=== PATIENT | male | born 1945 | race Caucasian/White ===

== ENCOUNTER 2016-08-10 15:51 | Observation (INO) | payer BC ==
[2016-08-10] MEDS ORDERED: KETOROLAC TROMETHAMINE 30 MG/ML VIAL ONE (16:20)
[2016-08-10] MEDS ORDERED: ONDANSETRON HCL 4 MG/2 ML VIAL ONE (16:21)
[2016-08-10 16:25] LABS: BASOPHIL# 0.1 X 10^3uL (0.0-0.1); BASOPHILS 0.5 % (0.0-2.0); EOSINOPHILS 0.8 % (0.0-6.0); EOSINOPHILS# 0.1 X 10^3uL (0.0-0.4); HEMATOCRIT 45.8 % (42.0-54.0); HEMOGLOBIN 16.1 g/dL (14.0-18.0); LYMPHOCYTES# 1.9 X 10^3uL (0.8-3.8); MEAN CELL VOLUME 89.6 fL (80.0-100.0); MEAN CORPUS. HGB CONCENTRATION 35.2 g/dL (32.0-36.0); MEAN CORPUSCULAR HEMOGLOBIN 31.6 pg (29.0-35.0); MEAN PLATELET VOLUME 7.5 fL (7.4-10.4); MONOCYTES# 0.7 X 10^3uL (0.2-1.0); NEUTROPHILS 76.7 % (54.0-75.0); NEUTROPHILS# 8.9 X 10^3uL (2.6-6.7); PLATELET COUNT 370 X 10^3uL (130-440); RED CELL DISTRIBUTION WIDTH 12.4 % (11.5-14.5); WHITE BLOOD COUNT 11.7 X 10^3uL (3.9-10.7)
[2016-08-10 16:28] LABS: BLOOD UREA NITROGEN 25 mg/dL (9-20); CALCIUM 9.6 mg/dL (8.4-10.2); CHLORIDE 104 mmol/L (98-107); EST GLOMERULAR FILTRATION RATE > 60 mL/min; GLUCOSE 125 mg/dL (70-100); POTASSIUM 3.9 mmol/L (3.5-5.1); SODIUM 140 mmol/L (137-145)
--- NOTE | 2016-08-10 16:47 | CT REPORT ---
HISTORY: Left-sided flank pain COMPARISON: None. TECHNIQUE: This examination was performed using automated exposure control, adjustment of mA or kV according to patient size, and/or use of iterative reconstruction technique. Axial contiguous images of the abdome n and pelvis were obtained without oral or IV contrast, coronal reformat images also performed. FINDINGS: Lung bases and cardiac apex appearing normal. There are left hepatic lobe cysts. Liver pare nchyma otherwise normal on noncontrast examination. The gallbladder is normal. The adrenal glands giovanni ear normal. Right kidney appears normal without hydronephrosis, mass or stone. The left kidney demons trates [id number] hydronephrosis with perinephric edema on the basis of a proximal left uretera l calculus best seen on series 2 image 66 and series 3 image 48 measuring over a craniocaudal dimensi on of 5 mm. No additional ureteral calculus seen. Pancreatic parenchyma appears normal. Spleen appears normal. Aorta is atherosclerotic without aneurysm. Stomach, small and large bowel appear normal. The appendix is normal. No free fluid seen. Prostate gl and is prominent. Small bilateral inguinal hernias are seen, containing fat on the left and containin g fat and a small portion of small bowel in the right. Pelvic phleboliths are noted. The urinary blad sebastian is normal. There are degenerative changes of moderately severe appearance throughout the spine without acute or aggressive bone lesion. IMPRESSION: 1. Mild to moderate left-sided hydronephrosis on the basis of a 5 mm calculus in the proximal left ur eter. 2. Bilateral inguinal hernias containing fat and a small knuckle of bowel on the right without obstru ction seen. 3. Enlarged prostate gland. 4. Otherwise incidental findings as discussed in complete detail above. Final Electronic Signature: This report was electronically signed by Ilya Barber MD on 08/10/2016 4:45 PM. lindsay /
[2016-08-10] MEDS ORDERED: ACETAMINOPHEN 325 MG TABLET PO PRN (16:56)
[2016-08-10] MEDS ORDERED: HOME MEDICATION LIST NEEDED 1 EA EACH MC ONE (16:56)
[2016-08-10] MEDS ORDERED: MAG-AL PLUS XS SUSP 30 ML UDC PO PRN (16:56)
[2016-08-10] MEDS ORDERED: ONDANSETRON HCL 4 MG/2 ML VIAL IV PRN (16:59)
--- NOTE | 2016-08-10 17:14 | ER NURSING DOCUMENTATION ---
Nurse's Notes [facility] Name:Satinder De Santiago Age:70 yrs Sex:Male :1945 Arrival Date:08/10/2016 Time:15:51 Bed1 Private MD: Diagnosis:Kidney Stone w/ Colic-: Left 5mm Proximal Ureteral Stone;Hydronephrosis Presentation: 08/10 15:54 Acuity: TREE 3 rh 15:56 Presenting complaint: Patient states: pt has had left flank pain and nausea getting st worst since [place]. Transition of care: Home. 15:56 Method Of Arrival: Private Vehicle st Triage Assessment: 15:58 General: Appears uncomfortable, Behavior is cooperative. Pain: Complains of pain in st posterior aspect of left lateral abdomen Pain currently is 7 out of 10 on a pain scale. Pain began 30 min ago got bad. Neuro: No deficits noted. Cardiovascular: No deficits noted. Respiratory: No deficits noted. GI: Abdomen is flat, non- distended Abd is soft and non tender X 4 quads. Reports nausea. 15:59 Musculoskeletal: Reports pain in posterior aspect of left lateral abdomen. st Historical: - Allergies: neosporn; - Home Meds: 1. Enalapril Oral 2. amlodipine oral 3. Metformin Oral 4. atorvastatin oral 5. Enalapril Oral 6. cetirizine oral 7. amlodipine oral 8. Aspirin Oral 9. tamsulosin oral - PMHx: HYPERTENSION; DIABETES - NIDDM; bradycardia; stroke; Hypertension; - Tetanus: < 10 years. - Ebola Screening: : Patient denies exposure to infectious person. Patient denies travel to an Ebola-affected area in the 21 days before illness onset. . - Social history: Smoking status: Patient states was never smoker of tobacco. Patient/guardian denies using alcohol, marijuana. Screenin:59 Infectious Disease Risk None. Abuse screen: Denies threats or abuse. Denies injuries st from another. pt feels safe at home. Nutritional screening: No deficits noted. Vital Signs: 15:54 BP 139 / 119; Pulse 48; Resp 15; Temp 97.7(O); Pulse Ox 95% on R/A; Weight 81.65 kg; rh Height 6 ft. 0 in. (182.88 cm); Pain 7/10; 16:42 BP 150 / 60 (auto/); Pain 2/10; st 16:42 Pulse 42; Pulse Ox 89% ; Pain 2/10; st 15:54 Body Mass Index 24.41 (81.65 kg, 182.88 cm) rh Addy Coma Score: 16:20 Eye Response: spontaneous(4). Verbal Response: oriented(5). Motor Response: obeys cd commands(6). Total: 15. ED Course: 15:52 Patient arrived in ED. ds 15:54 Triage completed. rh 15:56 Tereza Mcknight RN is Primary Nurse. st 15:59 Valuables Remains with patient Patient has correct armband on for positive st identification. Bed in low position. 16:02 Inserted peripheral IV: 20 gauge in right antecubital area and blood collected. rh 16:09 Ramses Pretty MD is Attending Physician. cd 16:45 Oxygen Oxygen administration via nasal cannula @ 2L/min. st 16:52 Gurpreet Callahan MD is Admitting Physician. cd Administered Medications: 16:11 Drug: NS 0.9% 1000 ml; Route: IV; Rate: bolus; Site: right antecubital; st 17:13 Follow up: IV Status: Completed infusion; IV Intake: 1000ml st 16:13 Drug: Toradol 30 mg; Route: IVP; Site: right antecubital; st 16:45 Follow up: Response: Pain is decreased st 16:13 Drug: Zofran 4 mg; Route: IVP; Infused Over: 2 mins; Site: right antecubital; st 16:45 Follow up: Response: Nausea is decreased st 16:16 Drug: Dilaudid 1 mg; Route: IVP; Site: right antecubital; st 16:46 Follow up: Response: Pain is decreased st Point of Care Testing: Urine Dip: 16:10 pH: 5.0; ; Specific [place]: 1.025; Ketones: Negative; Glucose: Negative; Protein: st Positive (++); Leukocytes: Negative; Nitrite: Negative ; Blood: Large (+++); Bilirubin: Negative ; Urobilinogen: Normal Intake: 17:13 IV: 1000ml; Total: 1000ml. st Outcome: 16:53 Decision to Admit by Provider. cd 17:12 Admitted to Med/surg accompanied by nurse. st 17:12 Condition: stable 17:12 Report given to Jori MALONE 17:12 Instructed on need to admit 17:13 Patient [address] the ED. st Signatures: Tereza Mcknight RN RN st Hola, Mansi, Ramses Sarabia MD MD cd Hofsess, Rachel
--- NOTE | 2016-08-10 17:14 | ER PHYSICIAN DOCUMENTATION ---
Physician Documentation [facility] Name:Satinder De Santiago Age:70 yrs Sex:Male :1945 Arrival Date:08/10/2016 Time:15:51 Bed1 Private MD: Ramses Ortiz Disposition: 08/10 17:00 Chart complete. cd Disposition: 08/10/16 16:53 Admit ordered for Gurpreet Callahan. Preliminary diagnosis are Kidney Stone w/ Colic - : Left 5mm Proximal Ureteral Stone, Hydronephrosis. - Bed requested for Medical/Surgical. - Condition is Fair. - Problem is new. - Symptoms have improved. 23 HR OBS Yes HPI: 15:55 This 70 yrs old Male presents to ER via Private Vehicle with complaints of cd Left Flank Pain. 15:55 The patient presents with pain that is acute. The symptoms are located in the left mid cd back. Onset: The symptoms/episode began/occurred acutely, today, Patient reports he started having some pain Wednesday into Wednesday...then it abated Wednesday night. The pain returned Wednesday and became very severe today about 1 - 2 hours ago. He denies fever or chills.. The pain does not radiate. Associated signs and symptoms: Pertinent positives: abdominal pain, nausea, Pertinent negatives: dysuria, fever, vomiting. Severity of symptoms: At their worst the symptoms were severe, just prior to arrival, in the emergency department the symptoms have improved, mildly. Historical: - Allergies: neosporn; - Home Meds: 1. Enalapril Oral 2. amlodipine oral 3. Metformin Oral 4. atorvastatin oral 5. Enalapril Oral 6. cetirizine oral 7. amlodipine oral 8. Aspirin Oral 9. tamsulosin oral - PMHx: HYPERTENSION; DIABETES - NIDDM; bradycardia; stroke; Hypertension; - Tetanus: < 10 years. - Ebola Screening: : Patient denies exposure to infectious person. Patient denies travel to an Ebola-affected area in the 21 days before illness onset. . - Social history: Smoking status: Patient states was never smoker of tobacco. Patient/guardian denies using alcohol, marijuana. ROS: 16:20 ENT: Negative for injury, pain, epistaxis and discharge. cd Neck: Negative for injury, pain, stiffness and swelling. Cardiovascular: Negative for chest pain, palpitations, edema and pleuritic pain. Respiratory: Negative for shortness of breath, dyspnea on exertion, cough, sputum production, wheezing, hemoptysis and pleuritic chest pain. MS/Extremity: Negative for injury, deformity, edema, calf tenderness, pain or coldness. Skin: Negative for injury, rash, itching and discoloration. 16:20 Neuro: Negative for headache, weakness, numbness, tingling, and seizure. cd 16:20 Constitutional: Positive for poor PO intake, Negative for chills, fever. 16:20 Abdomen/GI: Positive for abdominal pain, nausea, anorexia, of the left upper quadrant and left lower quadrant, Negative for vomiting, diarrhea, abdominal distension, hematemesis, black/tarry stool, rectal bleeding. 16:20 Back: Positive for pain at rest, of the left mid back. 16:20 : Positive for flank pain, Negative for urinary frequency, hematuria, burning with urination, foul smelling urine. 16:20 All other systems are negative. Exam: ENT: Nares patent. No nasal discharge, no septal abnormalities noted. Tympanic membranes are normal and external auditory canals are clear. Oropharynx with no redness, swelling, or masses, exudates, or evidence of obstruction, uvula midline. Mucous membranes dry Neck: Trachea midline, no thyromegaly or masses palpated, and no cervical lymphadenopathy. Supple, full range of motion without nuchal rigidity, or vertebral point tenderness. No Meningismus. Chest/axilla: Normal chest wall appearance and motion. Nontender with no deformity. No lesions are appreciated. Cardiovascular: Regular rate and rhythm with a normal S1 and S2. No gallops, murmurs, or rubs. Normal PMI, no JVD. No pulse deficits. 16:20 Respiratory: Lungs have equal breath sounds bilaterally, clear to auscultation and cd percussion. No rales, rhonchi or wheezes noted. No increased work of breathing, no retractions or nasal flaring. 16:20 Constitutional: The patient appears alert, awake, non-diaphoretic, non-toxic, well developed, well nourished, anxious, in obvious distress, moderately distressed. 16:20 Abdomen/GI: Inspection: abdomen appears normal, Bowel sounds: normal, active, Palpation: mild abdominal tenderness, in the left upper quadrant and left lower quadrant, Rectal exam: the exam is deferred. 16:20 Back: pain, that is moderate, of the left mid back, ROM is normal, normal spinal alignment noted, CVA tenderness, that is moderate, is noted on the left. 16:20 : CVA tenderness, on the left. 16:20 Neuro: Motor: is normal, Sensation: is normal, Gait: not applicable Deep tendon reflexes are normal. Vital Signs: 15:54 BP 139 / 119; Pulse 48; Resp 15; Temp 97.7(O); Pulse Ox 95% on R/A; Weight 81.65 kg; rh Height 6 ft. 0 in. (182.88 cm); Pain 7/10; 16:42 BP 150 / 60 (auto/); Pain 2/10; st 16:42 Pulse 42; Pulse Ox 89% ; Pain 2/10; st 15:54 Body Mass Index 24.41 (81.65 kg, 182.88 cm) rh Addy Coma Score: 16:20 Eye Response: spontaneous(4). Verbal Response: oriented(5). Motor Response: obeys cd commands(6). Total: 15. MDM: 15:55 Data interpreted: Pulse oximetry: on room air is 91 %. Interpretation: normal. cd 16:10 Patient medically screened. cd 16:15 Differential diagnosis: Hydronephrosis Pyelonephritis Ureterolithiasis. cd 16:45 Counseling: I had a detailed discussion with the patient and/or guardian regarding: the cd historical points, exam findings, and any diagnostic results supporting the discharge/admit diagnosis, lab results, radiology results, the need for further work-up and treatment in the hospital, risk of leaving the Emergency Department. 16:50 Data reviewed: vital signs, nurses notes, old medical records, lab test result(s), CBC, cd electrolytes, urinalysis, radiologic studies, CT scan, and as a result, I will admit patient, administer IV fluids, NS bolus, NS maintenence, prescribe pain medication, Dilaudid, Toradol. 16:52 Response to treatment: the patient's symptoms have markedly improved after treatment, cd the patient's condition has returned to base line, and as a result, I will admit patient. Physician consultation: uGrpreet Callahan MD was called at 16:50, was contacted at 17:05, regarding admission, to the floor, consult, patient's condition, need to evaluate the patient as soon as possible, and will see patient in inpatient room, shortly, later today. Admission orders: after a detailed discussion of the patient's condition and case, the admit orders are written by me. 17:00 ED course: The patient has a 5 mm Left Proximal Ureteral Stone with Mild to Moderate cd Hydronephrosis. This stone should pass on its own, but will require some time. He will be admitted for pain control, IV hydration.. 08/10 16:33 Order name: CBC AUTO DIF, MDIF/RMOR IF IND; Complete Time: 16:43 EDMS 08/10 16:43 Interpretation: Normal Except: WHITE BLOOD COUNT 11.7; NEUTROPHILS 76.7; Elevated WBC cd with Left shift. 08/10 16:34 Order name: BASIC METABOLIC PANEL; Complete Time: 16:43 EDMS 08/10 16:43 Interpretation: Normal Except: GLUCOSE 125; Hyperglycemia. 08/11 06:40 Order name: BASIC METABOLIC PANEL EDND 08/10 16:49 Order name: CAT SCAN; ABD/[place] [id number]; Complete Time: 01:38 EDND 08/11 01:37 Interpretation: Abnormal: See Radiologist Report. 08/10 16:10 Order name: I & O; Complete Time: 16:12 08/10 16:10 Order name: NPO; Complete Time: 16:12 08/10 16:10 Order name: Pulse Ox Continuous; Complete Time: 16:12 08/10 16:10 Order name: Urine Strainer 08/10 16:45 Order name: Oxygen; Complete Time: 16:46 st Dispensed Medications: 16:11 Drug: NS 0.9% 1000 ml; Route: IV; Rate: bolus; Site: right antecubital; st 17:13 Follow up: IV Status: Completed infusion; IV Intake: 1000ml st 16:13 Drug: Toradol 30 mg; Route: IVP; Site: right antecubital; st 16:45 Follow up: Response: Pain is decreased st 16:13 Drug: Zofran 4 mg; Route: IVP; Infused Over: 2 mins; Site: right antecubital; st 16:45 Follow up: Response: Nausea is decreased st 16:16 Drug: Dilaudid 1 mg; Route: IVP; Site: right antecubital; st 16:46 Follow up: Response: Pain is decreased st Point of Care Testing: Urine Dip: 16:10 pH: 5.0; ; Specific [place]: 1.025; Ketones: Negative; Glucose: Negative; Protein: st Positive (++); Leukocytes: Negative; Nitrite: Negative ; Blood: Large (+++); Bilirubin: Negative ; Urobilinogen: Normal Signatures: Tereza Mcknight RN RN st Daley, Chris, MD MD cd
[2016-08-10] MEDS: NORMAL SALINE 1,000 ML IV SCH (17:55)
[2016-08-10] MEDS ORDERED: HOME MEDICATION LIST NEEDED 1 EA EACH MISC ONE (18:27)
--- NOTE | 2016-08-10 19:55 | HISTORY & PHYSICAL ---
DATE OF ADMISSION: 08/10/16 ATTENDING PHYSICIAN: Gurpreet Callahan MD CHIEF COMPLAINT: Left flank pain. HISTORY OF PRESENT ILLNESS: Patient is a 70-year-old male who presented to the Emergency Room with a 2-day history of nausea and dry heaves and left mid abdominal pain. This morning it became an exquisite colicky left flank pain 10/ 10 in intensity. This was associated with urinary frequency, hematuria and hesitancy. No dysuria or urgency. No previous history of kidney stones. Patient acknowledges only fair intake of p.o. fluids normally. ALLERGIES: None. MEDICATIONS Enalapril/Amlodipine 20/10 mg p.o. daily. Metformin 500 mg p.o. b.i.d. Atorvastatin 40 mg p.o. q.h.s. Cetirizine 10 mg p.o. daily PRN. Aspirin 325 mg p.o. daily. Tamsulosin 0.4 mg p.o. daily. Ibuprofen 200 mg 2 tabs p.o. b.i.d. PRN. Glucosamine chondroitin 2 tabs p.o. b.i.d. Garlic 1 tab p.o. daily. Multivitamin 1 tab p.o. daily. Gaviscon 80/14.2 mg chewable tablet daily PRN pyrosis. PAST MEDICAL HISTORY 1. Prediabetes. 2. Hypertension. 3. Hyperlipidemia. 4. 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 5. Left facial droop and expressive aphasia, all of which appear to have resolved. 6. History of bradycardia. 7. Allergic rhinitis. 8. Left vertebral stenosis. 9. Tonsillectomy and adenoidectomy. 10. Benign prostatic hypertrophy, followed by [facility]. 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 , 2 children. No smoking. No alcohol. FAMILY HISTORY: Father with myocardial infarction at 76. Brother with diabetes. Mother with cerebrovascular accident, coronary artery disease, hypertension and dementia. REVIEW OF SYSTEMS: No heart, lung, kidney, liver, thyroid, seizures, peptic ulcer disease, skin, or bleeding disorders. Nocturia x2. PREVENTATIVE HEALTH: Gets annual flu shot. Had Prevnar. Recommended Pneumovax. PHYSICAL EXAMINATION GENERAL: Morbidly obese male, NAD, alert and oriented x3. Apparently he was in exquisite pain when he first presented to the Emergency Room, but pain is much better controlled currently. HEENT: EOMI. Normal conjunctivae. No coryza. Pharynx not injected. NECK: No lymphadenopathy. No thyromegaly. No carotid bruits. Neck supple. CHEST: Clear. No rales, rhonchi or wheezes. Good breath sounds and symmetry throughout. COR: RRR without murmurs, gallops, rubs or clicks. No jugular venous distention. No ectopy. ABDOMEN: Soft, mild left mid kidney pain on palpation. No hepatosplenomegaly. No masses. No bruits. No inguinal nodes. Bowel sounds present. No guarding or rebound tenderness. No cerebrovascular accident tenderness on percussion at this time, but apparently it was much worse earlier. LOWER EXTREMITIES: No edema. Peripheral pulses present. LAB: White blood cell count 11.7, hemoglobin and hematocrit 16.1/45.8, platelets 370,000, sodium 140, potassium 3.9, chloride 104, CO2 25, BUN 25, creatinine 1.0, glucose 125, calcium 9.6. IMAGING: Abdominal/pelvic CT scan with renal protocol showed a mild to moderate left sided hydronephrosis with a 5 mm calculous and a proximal left ureter, along with bilateral inguinal hernias, containing some fat. A small nuchal of bile in the right without obstruction, benign prostatic hypertrophy. ASSESSMENT 1. Left ureteral lithiasis with intractable left renal colic pain. PLAN 1. IV hydration with normal saline. 2. Dilaudid and Toradol for pain control. 3. Full code status. [facility]
[2016-08-10] MEDS: TAMSULOSIN HCL 0.4 MG CAPSULE PO SCH (20:32)
[2016-08-10] MEDS: ENALAPRIL MALEATE 5 MG TABLET PO SCH (20:32)
[2016-08-10] MEDS: metFORMIN 500 MG TABLET PO SCH (20:33)
[2016-08-10] MEDS ORDERED: ATORVASTATIN CALCIUIM 40 MG TABLET PO SCH (21:00)
[2016-08-10] MEDS ORDERED: KETOROLAC TROMETHAMINE 30 MG/ML VIAL IV PRN (23:00)
[2016-08-11] MEDS: NORMAL SALINE 1,000 ML IV SCH (03:38)
[2016-08-11 06:37] LABS: BLOOD UREA NITROGEN 24 mg/dL (9-20); CALCIUM 8.4 mg/dL (8.4-10.2); CHLORIDE 98 mmol/L (98-107); EST GLOMERULAR FILTRATION RATE > 60 mL/min; GLUCOSE 101 mg/dL (70-100); SODIUM 139 mmol/L (137-145)
[2016-08-11] MEDS ORDERED: traMADol HCL 50 MG TABLET PO PRN (08:54)
--- NOTE | 2016-08-11 08:58 | PROGRESS NOTE: IM SOAP ---
IM: PN Subjective Interval history: Pain improving. Last pain meds about 6AM. Unclear whether stone has passed or not, but seems to be moving to L groin area. IM: PN Objective Exam - I&O/Vital Signs I&O: Intake & Output 08/10/16 08/11/16 08/11/16 21:59 05:59 13:59 Intake Total 0 1204 Output Total 575 Balance -575 1204 Weight 82.5 kg 83.5 kg Intake: IV 1204 Right Antecubital 1204 Oral 0 Output: Urine 575 Other: Urine Appearance Clear Clear Urine Color Yellow Yellow Voiding Method Toilet Toilet Vital Signs: Last Vital Signs Temp 36.6 C 08/11/16 06:33 Pulse 59 L 08/11/16 06:33 Resp 18 08/11/16 06:33 BP 162/70 08/11/16 06:33 Pulse Ox 92 08/11/16 06:33 Oxygen Flow Rate 1.5 Oxygen Delivery Method Room Air - GI/Abdominal GI/Abdominal exam: Present: normal bowel sounds, soft. Absent: guarding, organomegaly, tenderness - Back Exam Back exam: Absent: CVA tenderness (L), CVA tenderness (R) - Lab Labs: Laboratory Last Values WBC 11.7 X 10^3uL (3.9-10.7) H 08/10/16 16:00 RBC 5.10 X 10^6uL (4.20-6.10) 08/10/16 16:00 Hgb 16.1 g/dL (14.0-18.0) 08/10/16 16:00 Hct 45.8 % (42.0-54.0) 08/10/16 16:00 MCV 89.6 fL (80.0-100.0) 08/10/16 16:00 MCH 31.6 pg (29.0-35.0) 08/10/16 16:00 MCHC 35.2 g/dL (32.0-36.0) 08/10/16 16:00 RDW 12.4 % (11.5-14.5) 08/10/16 16:00 Plt Count 370 X 10^3uL (130-440) 08/10/16 16:00 MPV 7.5 fL (7.4-10.4) 08/10/16 16:00 Neutrophils % 76.7 % (54.0-75.0) H 08/10/16 16:00 Lymphocytes % 16.0 % (20.0-40.0) L 08/10/16 16:00 Eosinophils % 0.8 % (0.0-6.0) 08/10/16 16:00 Basophils % 0.5 % (0.0-2.0) 08/10/16 16:00 Neutrophils # 8.9 X 10^3uL (2.6-6.7) H 08/10/16 16:00 Lymphocytes # 1.9 X 10^3uL (0.8-3.8) 08/10/16 16:00 Monocytes 6.0 % (2.0-10.0) 08/10/16 16:00 Monocytes # 0.7 X 10^3uL (0.2-1.0) 08/10/16 16:00 Eosinophils # 0.1 X 10^3uL (0.0-0.4) 08/10/16 16:00 Basophils # 0.1 X 10^3uL (0.0-0.1) 08/10/16 16:00 Sodium 139 mmol/L (137-145) 08/11/16 05:00 Potassium 4.0 mmol/L (3.5-5.1) 08/11/16 05:00 Chloride 98 mmol/L (98-107) 08/11/16 05:00 Carbon Dioxide 26 mmol/L (22-30) 08/11/16 05:00 BUN 24 mg/dL (9-20) H 08/11/16 05:00 Creatinine 1.2 mg/dL (0.7-1.3) 08/11/16 05:00 GFR Calculation > 60 mL/min 08/11/16 05:00 Glucose 101 mg/dL (70-100) H 08/11/16 05:00 Calcium 8.4 mg/dL (8.4-10.2) 08/11/16 05:00 Assessment and Plan - Date of Encounter Date of Encounter: 08/11/16 (1) ureterolithiasis, left Status: Acute Assessment and plan: Improving Current Visit: Yes (2) intractable pain Status: Acute Assessment and plan: Improved Current Visit: Yes - Time Spent With Patient Total time spent with greater than 50% in coordination of care (as documented) at patient's floor/unit and/or counseling patient: Quality Questions - VTE Prophylaxis Assessment VTE Present on Admission?: No Patient at risk for venous thromboembolism?: No VTE Risk Level: Very Low Risk Pharmaceutical VTE prophylaxis contraindication reason: not indicated Mechanical VTE prophylaxis contraindication reason: not indicated
[2016-08-11] MEDS ORDERED: AMLODIPINE BESYLATE 5 MG TABLET PO SCH (09:00)
[2016-08-11] MEDS: ENALAPRIL MALEATE 5 MG TABLET PO SCH (09:09)
[2016-08-11] MEDS: TAMSULOSIN HCL 0.4 MG CAPSULE PO SCH ×2 (09:10→09:20)
[2016-08-11] MEDS: metFORMIN 500 MG TABLET PO SCH (09:11)
[2016-08-11 10:49] VITALS: BP 150/70; PULSE 58; RESP 17; TEMP 99.9
--- NOTE | 2016-08-11 14:38 | DISCHARGE SUMMARY ---
DATE OF ADMISSION: 08/10/16 DATE OF DISCHARGE: 08/11/16 DIAGNOSIS: Left ureterolithiasis with intractable left renal colic pain. HISTORY OF PRESENT ILLNESS: This is a 70-year-old male who presented to the emergency room with a 2-day history of nausea and dry heaves and left midabdominal pain. The morning of admission, became an exquisite colicky left flank pain, 10/10 in intensity. This was associated with urinary frequency, hematuria and hesitancy. No dysuria or urgency. No previous history of kidney stones. The patient also has a fair intake of p.o. fluids normally. Please see previously dictated history and physical for further details. HOSPITAL COURSE: The patient was admitted with left ureterolithiasis with intractable left renal colic pain, confirmed by abdominal/pelvic CT scan with renal protocol, which showed a mild to moderate left sided hydronephrosis with a 5 mm calculus in the proximal left ureter, along with bilateral inguinal hernias containing some fat and a small knuckle of bowel in the right hernia, without obstruction. The patient required IV Toradol and Dilaudid and was hydrated aggressively with intravenous saline. The stone did seem to move closer to the left groin but the pain has not resolved yet at this time. The patient still has intermittent left sided colicky pain but less severe then prior, and now controlled with p.o. tramadol. The patient was felt to be sufficiently safe to discharge at this time although he is at high risk for requiring rehospitalization and might require referral to Urology for basket retrieval of the stone. DISCHARGE INSTRUCTIONS: The patient may participate in activities as able. DISCHARGE FOLLOWUP: He is to increase his p.o. fluid intake to 3 quarts per day. Low salt, low cholesterol diet. He is try to collect the kidney stone and drop it off at the lab for stone analysis and followup with Dr. Callahan as needed. DISCHARGE MEDICATIONS Tramadol 50 mg 1-2 tablets p.o. q.6h p.r.n. pain, #30. Amlodipine/benazepril 10/20 mg 1 tablet p.o. q.day. Aspirin 325 mg p.o. q.day. Atorvastatin 40 mg p.o. at bedtime. Zyrtec 10 mg p.o. q.day. Co-enzyme Q10 1 tablet p.o. q.day. Garlic 1 tablet p.o. q.day. Glucosamine chondroitin. Ibuprofen 400 mg p.o. b.i.d. p.r.n. Metformin 500 mg p.o. b.i.d. Multivitamin 1 tablet p.o. q.day. Tamsulosin 0.4 mg p.o. q.day. MTDD
[2016-08-11 18:47] VITALS: O2SAT 92
[2016-08-11] MEDS ORDERED: TAMSULOSIN HCL 0.4 MG CAPSULE PO SCH (21:00)
== END 2016-08-11 13:17 | disposition home or self-care (01) ==
LOC: ER 15:51 → IN 17:15
PROVIDERS: ADMIT Family Medicine; ATTEND Family Medicine
DX: N20.1 Calculus of ureter (principal); R73.03 Prediabetes; I69.341 Monoplegia of lower limb following cerebral infarction affecting right dominant side; I10 Essential (primary) hypertension; E78.5 Hyperlipidemia, unspecified; N40.0 Benign prostatic hyperplasia without lower urinary tract symptoms; R00.1 Bradycardia, unspecified; Z79.899 Other long term (current) drug therapy
CPT/HCPCS: 36415; 74176; 80048; 85025; 96361; 96374; 96375; 96376; 99285; G0378; J1170; J1885; J2405; J7030